=== PATIENT | male | born 1970 | race Caucasian/White ===

== ENCOUNTER → 2019-08-20 | Day surgery (SDC) | payer BC ==
[~2019-08-20] MED LIST: BUPIVACAINE HCL 0.5% INJ 30 ML VIAL INJ ONE; DEXAMETHASONE SOD PHOS INJ 4 MG/ML VIAL ONE; FENTANYL CITRATE/PF 100MCG/2 ML INJ ONE; KETOROLAC TROMETHAMINE 30 MG/ML VIAL ONE; LIDOCAINE HCL 2% LOCAL INJ 5 ML SDV VIAL INJ ONE; MIDAZOLAM HCL 2 MG/2 ML VIAL ONE; ONDANSETRON HCL INJ 2MG/ML 2ML 2 MG/ML VIAL ONE; PROPOFOL IV EMULSION 10 MG/ML 20 ML VIAL ONE; SEVOFLURANE INHAL SOLN 250 ML PEN BTL ONE; testosterone INJ
--- OUTSIDE RECORDS SUMMARY | 2019-08-20 05:39 | XMS REPORT ---
Author [facility] Address Unknown Phone Unavailable Care Team Providers Care House Director Name Role Phone ALVARADO RUTLEDGE Unavailable Unavailable Problems This patient has no known problems. Allergies, Adverse Reactions, Alerts This patient has no known allergies or adverse reactions. Medications This patient has no known medications. Encounters Start Date/Time End Date/Time Encounter Type Admission Type Attending Clinicians Care Facility Care Department Encounter ID 2019-03-08 05:28:00 2019-03-08 01:41:00 Inpatient E [facility] [id number] Results Test Description Test Time Test Comments Text Results Atomic Results Result Comments MRI ELBOW LEFT WO 2019-07-10 16:10:00 [place] [id number] Patient Name: WING ADRIAN MR #: [id number] : 1970 Age/Sex: 49/M Req #: [id number] Adm Physician: Ordered by: ALVARADO RUTLEDGE MD Report #: [id number] Location: MRI Room/Bed: Procedure: [id number] MRI/MRI ELBOW LEFT WO Exam Date: Exam Time: REPORT STATUS: Signed Left Elbow MRI without contrast. History: Elbow pain and swe lling. Mass. Numbness. Comparison: None Technique: Coronal, sagittal, and axial PD FSE and PD FSE FS. Findings: Common extensor tendinosis with mid substance partial tear best seen on series 6 image 14 and 15. The common flexor tendon origin is normal. The anterior and posterior bands of the MCL are normal. The lateral ulnar collateral ligament and radial collateral ligament proper are normal. No osteochondral lesions. Physiologic amount of fluid within the joint. Signal intensity within the ulnar nerve is normal. Insertional biceps tendinosis best seen on series 4 image 31 through 35. No tear or retraction. The biceps and brachialis tendon insertions are otherwise intact. The triceps tendon is normal. No fracture, osteonecrosis, or stress-related edema. A skin marker is seen posteriorly. There is adjacent lobulation of the superficial fat with more focal lobulation best seen on axial image 15 measuring 2.0 cm in maximal dimension consistent with a small lipoma. Impression: A skin marker is seen posteriorly. There is adjacent lobulation of the superficial fat with more focal lobulation best seen on axial image 15 measuring 2.0 cm in maximal dimension consistent with a small lipoma. Insertional biceps tendinosis best seen on series 4 image 31 through 35. No tear or retraction. Common extensor tendinosis with mid substance partial tear best seen on series 6 image 14 and 15. Signed by: Dr. Sanjay Anderson M.D. on 07/10/2019 4:14 PM Dictated By: SANJAY ANDERSON MD, MD 161 Transcribed By: LIZA on 07/10/191613 COPY TO: ALVARADO RUTLEDGE MD
[2019-08-20] MEDS: CEFAZOLIN SOD 1 GM/NS 50ML 50 ML IV ONE (06:38)
[2019-08-20 09:25] VITALS: BP 124/77
--- NOTE | 2019-08-20 12:47 | Operative Report ---
DATE OF PROCEDURE: 08/20/2019 SURGEON: Channing Espinoza MD HEEL ATTACHER WOOD: Ozzy Kaba, certified PA. PREOPERATIVE DIAGNOSIS: Mass, left elbow with ulnar nerve ulnar nerve paresthesias. POSTOPERATIVE DIAGNOSIS: Mass, left elbow with ulnar nerve ulnar nerve paresthesias. PROCEDURE: Excisional biopsy of left elbow with ulnar nerve decompression. INDICATIONS: The patient is a 49-year-old gentleman, who has clinic signs and symptoms consistent with a small lipoma in the posterior medial aspect of his left elbow. This is causing some paresthesias in his ulnar nerve distribution. The findings and options have been discussed. The patient would like to have this excised. The risks and benefits were explained. He stated he understood and wished to proceed. PROCEDURE IN DETAIL: The patient was brought to the operating room and placed under general anesthetic. He received prophylactic antibiotics in the holding area. His left upper extremity was prepped and draped in a sterile manner. A preoperative time-out was performed. The extremity was exsanguinated and a proximal tourniquet was elevated to 250 mmHg. A curvilinear incision was made over the posterior medial aspect of the left elbow. This lipoma measured approximately 2 cm x 2 cm. This was circumferentially excised and removed from the wound. This was sent to pathology. The ulnar nerve was then carefully decompressed. There was indeed some fairly dense scar tissue compressing on the nerve at the cubital tunnel. Once this was freely released, the wound was irrigated. The wound was closed with subcuticular Vicryl and nylon stitches. 3 mL of 0.5% Marcaine with epinephrine were injected around the incision. A sterile bandage and a posterior splint were applied. There was no blood loss and all needle and sponge counts were correct. Channing Espinoza MD DR/FLOR /[id number]
== END | disposition home or self-care (01) ==
LOC: OR 05:25
PROVIDERS: ATTEND Specialist
DX: D17.22 Benign lipomatous neoplasm of skin and subcutaneous tissue of left arm (principal); G56.82 Other specified mononeuropathies of left upper limb; R00.1 Bradycardia, unspecified; Z01.810 Encounter for preprocedural cardiovascular examination; Z68.34 Body mass index [BMI] 34.0-34.9, adult
CPT/HCPCS: 11402; 12031; 64718; 88304; 93005; J0690; J1100; J1885; J2001; J2250; J2405; J2704; J3010